=== PATIENT | female | born 1940 | race Caucasian/White ===

== ENCOUNTER 2016-12-05 12:26 | Emergency (ER) | payer OTHER ==
[~2016-12-05] VITALS: Ht 154.9 cm; Wt 72.7 kg
[~2016-12-05 12:26] MED LIST: AMLO2.5T2 PO; MECL25TA3 PO; NOCURR
[2016-12-05] MEDS ORDERED: CAPT25TA3 PO (12:46)
[2016-12-05] MEDS ORDERED: HydrOXYzine PAMOATE 50 MG CAPSULE PO ONE (16:00)
[2016-12-05 16:14] LABS: BASOPHILS % (AUTO) 0.4 % (0.0-2.0); HEMOGLOBIN 13.3 g/dL (12.0-16.0); LYMPHOCYTES % (AUTO) 23.5 % (22.0-44.0); MEAN CORPUSCULAR HEMOGLOBIN 28.9 pg (26.0-34.0); MEAN CORPUSCULAR HGB CONC 32.4 G/dL (31.0-37.0); MEAN CORPUSCULAR VOLUME 89 fL (80-100); MONOCYTES # (AUTO) 0.5 K/uL (0.1-1.0); MONOCYTES % (AUTO) 5.9 % (2.0-9.0); NEUTROPHILS # (AUTO) 5.7 K/uL (1.8-7.7); NEUTROPHILS % (AUTO) 68.2 % (40.0-70.0); PLATELET COUNT (AUTO) 195 K/uL (150-450); RED CELL DISTRIBUTION WIDTH 14.2 % (11.5-14.5); WHITE BLOOD COUNT (AUTO) 8.3 K/uL (4.5-11.0)
[2016-12-05 16:28] LABS: ANION GAP 10 mmol/L (8-16); CARBON DIOXIDE 26 mmol/L (22-29); CHLORIDE 102 mmol/L (98-107); CREATININE 0.84 mg/dL (0.60-1.30); GLOMERULAR FILTR. RATE CALC > 60 mL/min (>60); POTASSIUM 3.6 mmol/L (3.5-5.1); SODIUM SERUM 138 mmol/L (136-145); UREA NITROGEN, BLOOD 23 mg/dL (7-18)
[2016-12-05 16:58] VITALS: BP 184/90
== END 2016-12-05 17:30 | disposition home or self-care (01) ==
LOC: EMS 12:29
DX: I10 Essential (primary) hypertension (principal); R00.2 Palpitations
CPT/HCPCS: 93005; 99285

== ENCOUNTER 2017-07-26 19:00 | Emergency (ER) | payer OTHER ==
[~2017-07-26] VITALS: Ht 154.9 cm; Wt 72.0 kg
[~2017-07-26 19:00] MED LIST changes: -AMLO2.5T2 PO; +CAPT25TA3 PO
[2017-07-26] MEDS ORDERED: ACETAMINOPHEN/CODEINE 300-30 MG TABLET PO ONE (21:15)
[2017-07-26 22:45] VITALS: BP 131/75
== END 2017-07-26 22:50 | disposition home or self-care (01) ==
LOC: EMS 19:01
DX: S22.088A Other fracture of T11-T12 vertebra, initial encounter for closed fracture (principal); S46.912A Strain of unspecified muscle, fascia and tendon at shoulder and upper arm level, left arm, initial encounter; S50.02XA Contusion of left elbow, initial encounter; I10 Essential (primary) hypertension; E78.00 Pure hypercholesterolemia, unspecified; V03.10XA Pedestrian on foot injured in collision with car, pick-up truck or van in traffic accident, initial encounter; Y93.89 Activity, other specified; Y92.410 Unspecified street and highway as the place of occurrence of the external cause; Y99.8 Other external cause status
CPT/HCPCS: 72072; 72100; 99284

== ENCOUNTER 2021-05-07 10:43 | Emergency (ER) | payer MEDICARE, OTHER ==
[~2021-05-07] VITALS: Ht 165.1 cm; Wt 65.9 kg
[~2021-05-07 10:43] MED LIST changes: +ASPI-1450 PO; +ATOR20TA86 PO; -MECL25TA3 PO; -NOCURR
[2021-05-07 11:45] LABS: BASOPHILS % (AUTO) 0.1 % (0.0-2.0); EOSINOPHILS % (AUTO) 0 % (1.0-6.0); HEMATOCRIT 36.2 % (36-46); HEMOGLOBIN 12.2 g/dL (12.0-16.0); LYMPHOCYTES # (AUTO) 0.6 K/uL (1.0-4.8); LYMPHOCYTES % (AUTO) 10.9 % (22.0-44.0); MEAN CORPUSCULAR HEMOGLOBIN 27.8 pg (26.0-34.0); MEAN CORPUSCULAR HGB CONC 33.6 G/dL (31.0-37.0); MEAN CORPUSCULAR VOLUME 83 fL (80-100); MONOCYTES # (AUTO) 0.4 K/uL (0.1-1.0); MONOCYTES % (AUTO) 8.3 % (2.0-9.0); NEUTROPHILS # (AUTO) 4.1 K/uL (1.8-7.7); NEUTROPHILS % (AUTO) 80.7 % (40.0-70.0); PLATELET COUNT (AUTO) 153 K/uL (150-450); RED BLOOD CELL COUNT(AUTO) 4.37 MIL/uL (4.00-5.20); RED CELL DISTRIBUTION WIDTH 14.1 % (11.5-14.5)
[2021-05-07 11:58] LABS: ANION GAP 7 mmol/L (8-16); CALCIUM, TOTAL 8.9 mg/dL (8.8-10.5); CARBON DIOXIDE 29 mmol/L (22-29); CHLORIDE 98 mmol/L (98-107); CREATININE 0.78 mg/dL (0.60-1.30); GLOMERULAR FILTR. RATE CALC > 60 mL/min (>60); GLUCOSE,RANDOM 115 mg/dL (70-110); POTASSIUM 3.8 mmol/L (3.5-5.1); SODIUM SERUM 134 mmol/L (136-145); UREA NITROGEN, BLOOD 10 mg/dL (7-18)
[2021-05-07 12:01] LABS: ALANINE AMINOTRANSFERASE 19 U/L (12-78); ALBUMIN 2.8 g/dL (3.4-5.0); ALKALINE PHOSPHATASE 100 U/L (46-116); ASPARTATE AMINOTRANSFERASE 36 U/L (15-37); BILIRUBIN,TOTAL 0.4 mg/dL (0.1-1.0); LIPASE 199 U/L (73-393); TOTAL PROTEIN, SERUM 7.4 g/dL (6.4-8.2)
[2021-05-07 13:42] LABS: APPEARANCE,URINE CLEAR (CLEAR); BILIRUBIN,URINE NEGATIVE (NEGATIVE); GLUCOSE, URINE (UA) NEGATIVE (NEGATIVE); KETONES,URINE NEGATIVE (NEGATIVE); LEUKOCYTE ESTERASE ,URINE NEGATIVE (NEGATIVE); NITRATE,URINE NEGATIVE (NEGATIVE); OCCULT BLOOD,URINE TRACE (NEGATIVE); PROTEIN,URINE POS 1+ (NEGATIVE)
[2021-05-07 13:48] LABS: BACTERIA,URINE None Seen /HPF (None Seen); RBC,URINE 0-2 /HPF (0-2); SQUAMOUS EPITHELIAL CELL,UR Rare /LPF (None Seen); WBC,URINE None Seen /HPF (0-5)
[2021-05-07] MEDS ORDERED: SODIUM CHLORIDE 0.9% 1,000 ML IV ONE (14:15)
[2021-05-07 16:18] VITALS: BP 142/78
[2021-05-07 16:28] LABS: COVID AG,FIA SOURCE NASOPHARYNGEAL
== END 2021-05-07 16:19 | disposition home or self-care (01) ==
LOC: EMS 10:44
DX: U07.1 COVID-19 (principal); R53.81 Other malaise; M25.561 Pain in right knee; R91.8 Other nonspecific abnormal finding of lung field; E78.00 Pure hypercholesterolemia, unspecified; I10 Essential (primary) hypertension; Z86.73 Personal history of transient ischemic attack (TIA), and cerebral infarction without residual deficits
CPT/HCPCS: 36415; 71250; 74176; 80053; 81001; 83690; 84484; 85025; 87426; 93005; 96360; 99285; U0003; 72192; 74150; J7030

== ENCOUNTER 2021-10-27 15:32 | Emergency (ER) | payer MEDICARE, OTHER ==
[~2021-10-27] VITALS: Ht 152.4 cm; Wt 73.6 kg
[2021-10-27 15:53] VITALS: BP 162/87
[2021-10-27] MEDS ORDERED: PRED-554 PO (16:40)
[2021-10-27] MEDS ORDERED: VALA500T42 PO (16:40)
[2021-10-27] MEDS ORDERED: BACI28OI29 TP (16:40)
[2021-10-27] MEDS ORDERED: ACET-2080 PO (16:40)
[2021-10-27] MEDS ORDERED: ACETAMINOPHEN/CODEINE 300-30 MG TABLET PO ONE (16:45)
== END 2021-10-27 17:04 | disposition home or self-care (01) ==
LOC: EMS 15:32
DX: B02.9 Zoster without complications (principal); I10 Essential (primary) hypertension; E78.00 Pure hypercholesterolemia, unspecified; Z86.73 Personal history of transient ischemic attack (TIA), and cerebral infarction without residual deficits
CPT/HCPCS: 99283